=== PATIENT | female | born 1990 | race Caucasian/White ===

== ENCOUNTER → 2018-09-05 | Outpatient (CLI) | payer OTHER ==
[~2018-09-05] MED LIST: ACEASPCAF; CALCA500CH PO; CETI10 PO; CODACE30 PO; CRUTCH4 USE; DOXY100 PO; HYDACE5 PO; HYDHCL25 PO; IBUP400; IBUP600 PO; IRON150C PO; IRON50; LORA1 PO; METO10 PO; MULVITMINE; NAPR500 PO; NAPR550 PO; NUVA RING; NUVARING; OXYACE5T PO; TRAM50 PO; Verotin-Gr Cap1 EACH PO
[2018-09-05 17:17] LABS: Source, Urine Clean Catch
[2018-09-05 18:09] LABS: Appearance, Urine Cloudy (Clear); Bilirubin, Urine Neg (Neg); Blood, Urine 4+ (Neg); Color, Urine Yellow (P-Yellow); Glucose Qualitative, Urine Neg (Neg); Ketones, Urine 1+ (Neg); Leukocyte Esterase, Urine 3+ (Neg); Nitrite, Urine Neg (Neg); Protein, Urine 2+ (Neg); Specific Gravity, Urine 1.025 (1.003-1.022); Urobilinogen, Urine NORM (Normal)
[2018-09-05 18:25] LABS: Amorphous Mod ({null, 0-Heavy}); Bacteria Many /hpf; Red Blood Cells, Urine 0-2 /hpf (0-2); Squamous Epithelial Cells Few /hpf (Few); White Blood Cells, Urine 25-50 /hpf (0-5)
== END | disposition home or self-care (01) ==
LOC: LAB 12:30 → LAB SHORT 12:30
PROVIDERS: Obstetrics & Gynecology
DX: R82.998 Other abnormal findings in urine (principal)
CPT/HCPCS: 81001; 87077; 87086; 87186

== ENCOUNTER 2018-11-02 10:50 | Day surgery (SDC) | payer OTHER ==
[~2018-11-02] VITALS: Ht 175.3 cm; Wt 65.8 kg
[~2018-11-02 10:50] MED LIST changes: +SPIR50 PO
--- NOTE | 2018-11-02 13:05 | NUR ---
11/02/18 1305 Tonya West V PT RESTING IN RECLINER, CALL LIGHT WITHIN REACH, VSS, FAMILY AT CHAIR-SIDE. PT DENIES PAIN AND NAUSEA AT THIS TIME, PT GIVEN WARM BLANKTS FOR COMFORT. PT STATES SHE IS STILL GROGGY.
== END 2018-11-02 13:48 | disposition home or self-care (01) ==
LOC: ORSCSDS 10:50
PROVIDERS: Obstetrics & Gynecology
PROC: 0UT74ZZ Resection of Bilateral Fallopian Tubes, Percutaneous Endoscopic Approach (ICD-10-PCS; principal; 2018-11-02 12:00)
DX: Z30.2 Encounter for sterilization (principal); F17.210 Nicotine dependence, cigarettes, uncomplicated; Z79.899 Other long term (current) drug therapy
CPT/HCPCS: 88302; J0330; J1100; J2250; J2405; J3010; J7120

== ENCOUNTER 2019-02-18 12:49 | Emergency (ER) | payer OTHER ==
[~2019-02-18] VITALS: Ht 177.8 cm; Wt 65.8 kg
[2019-02-18] MEDS ORDERED: KETO10 PO (13:24)
[2019-02-18] MEDS ORDERED: Cleocin HCl300 MG PO (13:24)
== END 2019-02-18 13:45 | disposition home or self-care (01) ==
LOC: ER 12:49
DX: K02.9 Dental caries, unspecified (principal); Z88.5 Allergy status to narcotic agent; Z88.8 Allergy status to other drugs, medicaments and biological substances; Z87.891 Personal history of nicotine dependence
CPT/HCPCS: 96372; 99282-25; J1885

== ENCOUNTER → 2020-11-26 | Outpatient (CLI) | payer OTHER, BC | END | disposition home or self-care (01) | LOC: LAB SHORT 09:21 → PLD 09:21 | DX: L70.0 Acne vulgaris (principal); Z79.899 Other long term (current) drug therapy | CPT/HCPCS: 80053; 80061; 84478; 85027 ==

== ENCOUNTER 2020-12-30 17:03 | Emergency (ER) | payer OTHER, BC ==
[~2020-12-30] VITALS: Ht 175.3 cm; Wt 70.3 kg
[~2020-12-30 17:03] MED LIST changes: +Cleocin HCl300 MG PO; +KETO10 PO
[2020-12-30 18:27] LABS: BASOPHILS ABSOLUTE AUTO 0.03 K/mm3 (0.00-0.23); BASOPHILS PERCENT AUTO 0 % (0-2); EOSINOPHILS ABSOLUTE AUTO 0.21 K/mm3 (0.00-0.68); EOSINOPHILS PERCENT AUTO 3 % (0-6); Hematocrit 38.9 % (33.0-51.0); Hemoglobin 13.1 g/dL (11.5-16.0); IMMATURE GRAN ABSOLUTE AUTO 0.01 K/mm3 (0.00-0.10); IMMATURE GRAN PERCENT AUTO 0 % (0-1); LYMPHOCYTES ABSOLUTE AUTO 1.57 K/mm3 (0.84-5.20); LYMPHOCYTES PERCENT AUTO 21 % (21-46); MONOCYTES ABSOLUTE AUTO 0.63 K/mm3 (0.16-1.47); MONOCYTES PERCENT AUTO 8 % (4-13); Mean Corpuscular HGB 29.6 pg (26.0-34.0); Mean Corpuscular HGB Conc 33.7 g/dL (31.5-36.5); Mean Corpuscular Volume 88 fL (80-100); Mean Platelet Volume 10.6 fL (9.1-12.4); NEUTROPHILS ABSOLUTE AUTO 5.19 K/mm3 (1.96-9.15); NEUTROPHILS PERCENT AUTO 68 % (41-73); Platelet Count 199 K/mm3 (150-400); RDW Coefficient Variation 11.9 % (11.7-14.2); RDW Standard Deviation 38.6 fL (35.1-46.3); Red Blood Cell Count 4.43 M/mm3 (3.80-5.20); White Blood Cell Count 7.64 K/mm3 (4.00-11.30)
[2020-12-30 18:50] LABS: Alanine Aminotransfer (ALT/SGP 21 U/L (12-78); Albumin, Blood 4.1 g/dL (3.4-5.0); Albumin/Globulin Ratio 1.2 (0.8-1.8); Alk Phos 35 U/L (50-136); Anion Gap 5 mmol/L (6-16); Aspartate Aminotrans (AST/SGOT 16 U/L (12-37); Bilirubin, Total 0.6 mg/dL (0.1-1.0); Blood Urea Nitrogen 12 mg/dL (8-24); Bun/Creatinine Ratio 14.8 (12.0-20.0); CO2, Blood 26 mmol/L (21-32); Calcium, Blood 8.8 mg/dL (8.5-10.1); Chloride, Blood 110 mmol/L (98-108); Creatinine, Blood 0.81 mg/dL (0.40-1.00); Globulin, Blood 3.5 g/dL (2.2-4.0); Glomerular Filtration Rate >60 (60-); Glucose, Blood 87 mg/dL (70-99); Potassium, Blood 4.1 mmol/L (3.5-5.5); Sodium, Blood 141 mmol/L (136-145); Total Protein, Blood 7.6 g/dL (6.4-8.2)
[2020-12-30 21:10] LABS: Source, Urine Clean Catch
[2020-12-30 21:16] LABS: Appearance, Urine Clear (Clear); Bilirubin, Urine Neg (Neg); Blood, Urine 1+ (Neg); Color, Urine Yellow (P-Yellow); Glucose Qualitative, Urine Neg (Neg); Ketones, Urine Neg (Neg); Leukocyte Esterase, Urine Neg (Neg); Nitrite, Urine Neg (Neg); Protein, Urine Neg (Neg); Specific Gravity, Urine 1.015 (1.003-1.022); Urobilinogen, Urine NORM (Normal)
[2020-12-30 21:22] LABS: Bacteria Few /hpf; Red Blood Cells, Urine Not Seen /hpf (0-2); Squamous Epithelial Cells Few /hpf (Few); White Blood Cells, Urine 0-2 /hpf (0-5)
[2020-12-30] MEDS ORDERED: ONDA4 PO (21:37)
[2020-12-30] MEDS ORDERED: DICY20 PO (21:37)
== END 2020-12-30 22:13 | disposition home or self-care (01) ==
LOC: ER 17:03
PROVIDERS: Physician Assistant
DX: R10.9 Unspecified abdominal pain (principal); Z87.891 Personal history of nicotine dependence
CPT/HCPCS: 36415; 80053; 81001; 81025; 85025; 99284; A9270

== ENCOUNTER → 2021-03-25 | Outpatient (CLI) | payer OTHER, BC ==
[~2021-03-25] MED LIST changes: +DICY20 PO; +ONDA4 PO
[2021-03-25 21:04] LABS: G. vaginalis (DNA Probe) Positive (NEGATIVE); T. vaginalis (DNA Probe) Negative (NEGATIVE)
[2021-03-25 21:05] LABS: Candida species (DNA Probe) Negative (NEGATIVE)
== END | disposition home or self-care (01) ==
LOC: LAB 15:23 → LAB SHORT 15:23
PROVIDERS: Advanced Practice Midwife
DX: N76.0 Acute vaginitis (principal)
CPT/HCPCS: 87480; 87510; 87660

== ENCOUNTER → 2021-03-25 | Outpatient (CLI) | payer OTHER, BC ==
[2021-03-26 14:11] LABS: HPV 16 Negative (Negative); HPV 18 Negative (Negative); HPV OTHER HR TYPES Negative (Negative)
== END | disposition home or self-care (01) ==
LOC: LAB SHORT 11:07 → LAB 11:07
PROVIDERS: Advanced Practice Midwife
DX: Z01.419 Encounter for gynecological examination (general) (routine) without abnormal findings (principal)
CPT/HCPCS: 87624; G0123

== ENCOUNTER → 2022-07-30 | Outpatient (CLI) | payer OTHER | END | disposition home or self-care (01) | LOC: LAB 08:00 → LAB SHORT 08:00 | DX: R35.0 Frequency of micturition (principal) | CPT/HCPCS: 87077; 87086; 87186 ==

== ENCOUNTER 2022-11-03 07:40 | Day surgery (SDC) | payer OTHER ==
[~2022-11-03] VITALS: Ht 177.8 cm; Wt 72.0 kg
[~2022-11-03 07:40] MED LIST changes: +ACCUTANE30 MG PO
--- NOTE | 2022-11-03 08:53 | NUR ---
Ambulatory in Day Surgery History, Chart, Medications and Allergies reviewed before start of procedure. Pre-Op teaching done. Pt verbalizes understanding. Patient States Post-Procedure ride home has been arranged.
--- NOTE | 2022-11-03 13:07 | NUR ---
Patient up to Ambulate independently. Gait steady. Discharge instructions reviewed with patient. Patient verbalizes understanding. Copy given to patient to take home, WELL . SCRIPT SENT WITH PT. Patient States Post-Procedure ride home has been arranged. Discharged via wheelchair to private car for ride home. PT TOLERATING PO.REPORTS PT READY TO GO HOME,PAIN TOLERABLE. DENIES N/V,SOB.DRESINGS C/D/I. PT SENT WITH ICE PACK.
== END 2022-11-03 13:07 | disposition home or self-care (01) ==
LOC: ORSCMMR 07:40 → ORD 09:00 → ORSCMMR 13:07
PROVIDERS: Surgery
PROC: 0FT44ZZ Resection of Gallbladder, Percutaneous Endoscopic Approach (ICD-10-PCS; principal; 2022-11-03 09:00)
DX: K82.4 Cholesterolosis of gallbladder (principal); Z87.891 Personal history of nicotine dependence
CPT/HCPCS: 88304; A9270; J0694; J1100; J2250; J2405; J2704; J2710; J2795; J3010; J7120

== ENCOUNTER 2023-07-05 07:29 | Day surgery (SDC) | payer OTHER ==
[~2023-07-05] VITALS: Ht 177.8 cm; Wt 69.5 kg
[2023-07-05 10:08] VITALS: BP 97/64
== END 2023-07-05 09:55 | disposition home or self-care (01) ==
LOC: ORSCSDS 07:29
PROVIDERS: Surgery
PROC: 0DJD8ZZ Inspection of Lower Intestinal Tract, Via Natural or Artificial Opening Endoscopic (ICD-10-PCS; principal; 2023-07-05 08:45)
DX: R19.4 Change in bowel habit (principal); R10.31 Right lower quadrant pain; J45.909 Unspecified asthma, uncomplicated; Z87.891 Personal history of nicotine dependence
CPT/HCPCS: J2704; J7120